=== PATIENT | female | born 1970 | race Two or more races ===

== ENCOUNTER 2017-07-31 05:53 | Emergency (ER) | payer MEDICAID ==
[~2017-07-31] VITALS: Ht 157.5 cm; Wt 63.6 kg
[~2017-07-31 05:53] MED LIST: CYCL-1 PO
[2017-07-31] MEDS ORDERED: ondansetron/PF 4mg/2ml inj IV ONE (06:25)
[2017-07-31] MEDS ORDERED: normal saline 1000ml 1,000 ML IV ONE (06:25)
[2017-07-31] MEDS ORDERED: pantoprazole 40 MG vial IV ONE (06:25)
[2017-07-31 07:25] LABS: BASOPHILS % (AUTO) 0.3 % (0-1); EOSINOPHILS # (AUTO) 0.1 X10'3 (0-0.9); HEMATOCRIT 38.3 % (35.0-45.0); LYMPHOCYTES # (AUTO) 1.6 X10'3 (1.1-4.8); LYMPHOCYTES % (AUTO) 17.2 % (21-51); MEAN CORPUSCULAR HEMOGLOBIN 31.8 PG (27.0-31.0); MEAN CORPUSCULAR VOLUME 93.6 FL (78-98); MEAN PLATELET VOLUME 9.3 FL (7.4-10.4); MONOCYTES # (AUTO) 0.6 X10'3 (0-0.9); MONOCYTES % (AUTO) 6.1 % (2-12); NEUTROPHILS # (AUTO) 7.1 X10'3 (1.8-7.7); NEUTROPHILS % (AUTO) 75.4 % (42-75); PLATELET COUNT 227 X10'3 (140-440); RED BLOOD COUNT 4.09 X10'6 (4.20-5.60); RED CELL DISTRIBUTION WIDTH 12.3 % (11.5-14.5); WHITE BLOOD COUNT 9.4 X10'3 (4.5-11.0)
[2017-07-31 07:51] LABS: ALANINE AMINOTRANSFERASE 33 U/L (12-78); ALBUMIN 3.6 G/DL (3.4-5.0); ALBUMIN/GLOBULIN RATIO 1.1 (1.1-1.5); ALKALINE PHOSPHATASE 87 IU/L (46-116); ANION GAP 7 (8-16); ASPARTATE AMINO TRANSFERASE 19 U/L (10-37); BILIRUBIN,TOTAL 0.9 MG/DL (0.1-1.0); BLOOD UREA NITROGEN 14 MG/DL (7-18); BUN/CREATININE RATIO 18.4 (6.6-38.0); CALCIUM 8.5 MG/DL (8.5-10.1); CHLORIDE 104 MMOL/L (99-107); CREATININE 0.76 MG/DL (0.40-0.90); GLUCOSE 110 MG/DL (70-104); LIPASE 90 U/L (73-393); POTASSIUM 3.6 MMOL/L (3.5-5.1); SODIUM 141 MMOL/L (135-145); eGFR 81 ML/MIN
[2017-07-31] MEDS ORDERED: ketorolac trometh. 30mg/ml inj. IV ONE (07:55)
[2017-07-31 08:25] LABS: URINE HCG NEGATIVE (NEG)
[2017-07-31 08:31] LABS: CLARITY,URINE SLIGHTLY CLOUDY (Clear); COLOR,URINE STRAW (Yellow); GLUCOSE, URINE NEGATIVE (Neg); KETONES,URINE NEGATIVE (Neg); LEUKOCYTE ESTERASE ,URINE SMALL (Neg); NITRITES, URINE NEGATIVE (Neg); OCCULT BLOOD,URINE NEGATIVE (Neg); PH,URINE 6.5 (4.8-8.0); PROTEIN,URINE NEGATIVE (Neg); UROBILINOGEN,URINE 0.2 E.U/dL (0.2-1.0)
[2017-07-31 08:32] LABS: UA COLLECTION TYPE CLN CATCH MIDSTREAM
[2017-07-31 08:36] LABS: BACTERIA,URINE 2+ /HPF (Neg); MUCUS STRANDS FEW /LPF (Neg); RENAL CELLS, URINE FEW /HPF; SQUAMOUS EPITHELIAL CELL,UR MODERATE /LPF (FEW); TRANSITIONAL EPI CELLS,URINE FEW /HPF
[2017-07-31 08:37] LABS: RBC,URINE 0-2 /HPF (0-2)
[2017-07-31 09:16] VITALS: BP 107/48
== END 2017-07-31 09:17 | disposition home or self-care (01) ==
LOC: ER 05:53
DX: R55 Syncope and collapse (principal); R19.7 Diarrhea, unspecified; F41.0 Panic disorder [episodic paroxysmal anxiety]; I10 Essential (primary) hypertension; G43.909 Migraine, unspecified, not intractable, without status migrainosus; G89.29 Other chronic pain; W19.XXXA Unspecified fall, initial encounter; Y93.89 Activity, other specified; Y92.009 Unspecified place in unspecified non-institutional (private) residence as the place of occurrence of the external cause; Y99.8 Other external cause status
CPT/HCPCS: 36415; 80053; 81001; 81025; 82948; 83690; 85025; 87077; 87088; 87186; 93005; 96361; 96374; 96375; 99285; C9113; J1885; J2405; J7030

== ENCOUNTER 2017-09-24 11:43 | Emergency (ER) | payer MEDICAID ==
[~2017-09-24] VITALS: Ht 157.5 cm; Wt 71.0 kg
[2017-09-24 11:57] VITALS: BP 144/70
[2017-09-24] MEDS ORDERED: ketorolac trometh inj. 60 MG/2 ML VIAL IM ONE (12:35)
[2017-09-24] MEDS ORDERED: NAPR-56 PO (12:36)
== END 2017-09-24 12:56 | disposition home or self-care (01) ==
LOC: ER 11:43
DX: M79.1 Myalgia (principal); M25.50 Pain in unspecified joint; G43.909 Migraine, unspecified, not intractable, without status migrainosus; I10 Essential (primary) hypertension; M19.90 Unspecified osteoarthritis, unspecified site; G89.29 Other chronic pain; Z88.8 Allergy status to other drugs, medicaments and biological substances; Z79.899 Other long term (current) drug therapy
CPT/HCPCS: 99282; J1885

== ENCOUNTER 2019-05-02 17:21 | Emergency (ER) | payer MEDICAID ==
[~2019-05-02] VITALS: Ht 157.5 cm; Wt 74.0 kg
[2019-05-02 17:55] LABS: BASOPHILS # (AUTO) 0.1 X10'3 (0-0.2); BASOPHILS % (AUTO) 0.8 % (0-1); EOSINOPHILS # (AUTO) 0.2 X10'3 (0-0.9); HEMATOCRIT 39.9 % (35.0-45.0); HEMOGLOBIN 13.7 g/dl (12.0-16.0); LYMPHOCYTES # (AUTO) 3.2 X10'3 (1.1-4.8); LYMPHOCYTES % (AUTO) 40.8 % (21-51); MEAN CORPUSCULAR HEMOGLOBIN 32.2 PG (27.0-31.0); MEAN CORPUSCULAR HGB CONC 34.4 g/dL (33.0-36.5); MEAN CORPUSCULAR VOLUME 93.7 FL (78-98); MEAN PLATELET VOLUME 9.3 FL (7.4-10.4); MONOCYTES # (AUTO) 0.7 X10'3 (0-0.9); NEUTROPHILS # (AUTO) 3.7 X10'3 (1.8-7.7); NEUTROPHILS % (AUTO) 47.4 % (42-75); PLATELET COUNT 280 X10'3 (140-440); RED BLOOD COUNT 4.26 X10'6 (4.20-5.60); RED CELL DISTRIBUTION WIDTH 12.5 % (11.5-14.5); WHITE BLOOD COUNT 7.9 X10'3 (4.5-11.0)
[2019-05-02 18:15] LABS: ALANINE AMINOTRANSFERASE 64 U/L (12-78); ALBUMIN 3.8 G/DL (3.4-5.0); ALKALINE PHOSPHATASE 97 IU/L (46-116); ANION GAP 4 (8-16); ASPARTATE AMINO TRANSFERASE 26 U/L (10-37); BILIRUBIN,TOTAL 0.5 MG/DL (0.1-1.0); BLOOD UREA NITROGEN 13 MG/DL (7-18); BUN/CREATININE RATIO 20.3 (6.6-38.0); CALCIUM 8.6 MG/DL (8.5-10.1); CHLORIDE 104 MMOL/L (99-107); CREATININE 0.64 MG/DL (0.40-0.90); GLUCOSE 120 MG/DL (70-104); POTASSIUM 3.8 MMOL/L (3.5-5.1); SODIUM 141 MMOL/L (135-145); TOTAL CARBON DIOXIDE 33.1 MMOL/L (24-32); TOTAL PROTEIN 7.6 G/DL (6.4-8.2); eGFR > 90 ML/MIN
[2019-05-02 20:48] LABS: CLARITY,URINE CLEAR (Clear); COLOR,URINE STRAW (Yellow); GLUCOSE, URINE NEGATIVE (Neg); KETONES,URINE NEGATIVE (Neg); LEUKOCYTE ESTERASE ,URINE TRACE (Neg); NITRITES, URINE NEGATIVE (Neg); OCCULT BLOOD,URINE NEGATIVE (Neg); PROTEIN,URINE NEGATIVE (Neg); UROBILINOGEN,URINE 0.2 E.U/dL (0.2-1.0)
[2019-05-02 20:57] LABS: UA COLLECTION TYPE CLN CATCH MIDSTREAM
[2019-05-02 21:02] LABS: BACTERIA,URINE FEW /HPF (Neg); MUCUS STRANDS NONE SEEN /LPF (Neg); RBC,URINE NONE SEEN /HPF (0-2); SQUAMOUS EPITHELIAL CELL,UR FEW /LPF (FEW); WBC,URINE 0-4 /HPF (0-4)
[2019-05-02] MEDS ORDERED: dexamethasone sod phosphate 10mg/ml inj IV STA (21:21)
[2019-05-02] MEDS ORDERED: ketorolac tromethamine 15mg/ml inj. IV ONE (21:25)
[2019-05-02] MEDS ORDERED: SUMAtriptan succ. 6 MG/0.5ml vial SQ ONE (21:25)
[2019-05-02] MEDS ORDERED: normal saline 1000ML IV soln IVB ONE (21:25)
[2019-05-02] MEDS ORDERED: proCHLORperazine 10 MG/2 ml inj IV ONE (21:25)
[2019-05-02 21:54] VITALS: BP 136/82
--- NOTE | 2019-05-07 10:39 | NUR ---
PT CALLED AND NOTIFIED OF POSITIVE URINE CULTURE FOR UTI AND NEED OF ABX. PT REQUESTED THAT RX BE CALLED INTO [facility] IN [place]. MACROBID 100MG BID x5 DAYS #10 WAS CALLED TO [facility] REQUEST[facility].
== END 2019-05-02 22:27 | disposition home or self-care (01) ==
LOC: ER 17:22
DX: R00.2 Palpitations (principal); R51 Headache; R07.89 Other chest pain; R06.02 Shortness of breath; G43.909 Migraine, unspecified, not intractable, without status migrainosus; I10 Essential (primary) hypertension; M19.90 Unspecified osteoarthritis, unspecified site; G89.29 Other chronic pain; Z88.6 Allergy status to analgesic agent; Z88.8 Allergy status to other drugs, medicaments and biological substances; Z79.899 Other long term (current) drug therapy
CPT/HCPCS: 36415; 70450; 71045; 80053; 81001; 83735; 83880; 84439; 84443; 84484; 85025; 87077; 87088; 87186; 93005; 96372; 96374; 96375; 99284; J0780; J1100; J1885; J7030; J3030

== ENCOUNTER 2020-05-13 05:44 | Day surgery (SDC) | payer MEDICAID ==
[2020-05-06 16:27] LABS: BASOPHILS # (AUTO) 0.1 X10'3 (0-0.2); BASOPHILS % (AUTO) 0.7 % (0-1); EOSINOPHILS # (AUTO) 0.1 X10'3 (0-0.9); EOSINOPHILS % (AUTO) 1.6 % (0-6); LYMPHOCYTES # (AUTO) 2.7 X10'3 (1.1-4.8); LYMPHOCYTES % (AUTO) 36.2 % (21-51); MEAN CORPUSCULAR HEMOGLOBIN 32.2 PG (27.0-31.0); MEAN CORPUSCULAR VOLUME 94.6 FL (78-98); MEAN PLATELET VOLUME 9.5 FL (7.4-10.4); MONOCYTES # (AUTO) 0.6 X10'3 (0-0.9); MONOCYTES % (AUTO) 7.6 % (2-12); NEUTROPHILS % (AUTO) 53.9 % (42-75); PRE OP HEMATOCRIT 40.5 % (35.0-45.0); PRE OP HEMOGLOBIN 13.8 g/dL (12.0-16.0); PRE OP PLATELET COUNT 264 X10'3 (140-440); RED BLOOD COUNT 4.28 X10'6 (4.20-5.60); RED CELL DISTRIBUTION WIDTH 12.9 % (11.5-14.5)
[2020-05-06 16:38] LABS: ALBUMIN 3.8 G/DL (3.4-5.0); ALKALINE PHOSPHATASE 86 IU/L (46-116); BLOOD UREA NITROGEN 13 MG/DL (7-18); BUN/CREATININE RATIO 17.3 (6.6-38.0); CALCIUM 8.6 MG/DL (8.5-10.1); CHLORIDE 104 MMOL/L (99-107); CREATININE 0.75 MG/DL (0.40-0.90); PRE OP ALT 51 U/L (30-65); PRE OP ANION GAP 7 (8-16); PRE OP AST 24 U/L (10-37); PRE OP BILIRUB, TOTAL 0.6 MG/DL (0.0-1.0); PRE OP GLUCOSE 119 MG/DL (70-104); PRE OP POTASSIUM 3.7 MMOL/L (3.4-5.1); PRE OP SODIUM 143 MMOL/L (135-145); TOTAL CARBON DIOXIDE 32.5 MMOL/L (24-32); TOTAL PROTEIN 7.5 G/DL (6.4-8.2); eGFR 82 ML/MIN
[2020-05-13] VITALS (10 sets, daily range): BP systolic 104–135; BP diastolic 61–79
[~2020-05-13] VITALS: Ht 157.5 cm; Wt 75.6 kg
[~2020-05-13 05:44] MED LIST changes: +ACET-1025 PO; +AMIT10TA6 PO; +CHOL500037 PO; -CYCL-1 PO; +FLUT16SP11 BOTHNARES; +GABA300C PO; +LORA-512 PO; +OMEP-50 PO; +SERT50TA PO; +SUMA100T16 PO; +VANCOMYCIN INJ 1000 MG in NORMAL SALINE 250ml IV.SOLN IV ONE; +VITAMIN D3-50 PO; +famotidine 10mg tablet PO ONE; +ringers solution, lacted 1,000 ML IV SCH
[2020-05-13] MEDS ORDERED: ceFAZolin 2gm in dextrose, iso 50 ML IV ONE (06:00)
[2020-05-13] MEDS ORDERED: triamcinolone acetonide 40mg/ml inj ONE (06:38)
[2020-05-13] MEDS ORDERED: BUPIVAcaine/PF 2.5 mg/ml (0.25%) 30ml vial ONE (06:38)
[2020-05-13] MEDS ORDERED: LIDOcaine 1% (10mg/ml) 2ml vial ONE (06:56)
[2020-05-13] MEDS ORDERED: ketorolac trometh. 30mg/ml inj. ONE (07:18)
[2020-05-13] MEDS ORDERED: sevoflurane 250ml liquid IH ONE (07:18)
[2020-05-13] MEDS ORDERED: midazolam 2 mg/2 ml injection ONE (07:22)
[2020-05-13] MEDS ORDERED: fentaNYL/PF 50MCG/1 ML 2ML syringe ONE ×2 (07:22→07:50)
[2020-05-13] MEDS ORDERED: propofol inj 20 ML IV ONE (07:31)
[2020-05-13] MEDS ORDERED: LIDOcaine 2% (20mg/ml) 5ml vial ONE (07:31)
[2020-05-13] MEDS ORDERED: meperidine/PF 25mg/ml syringe IV PRN ×3 (08:00)
[2020-05-13] MEDS ORDERED: ondansetron/PF 4mg/2ml inj IV PRN (08:00)
[2020-05-13] MEDS ORDERED: proCHLORperazine 10 MG/2 ml inj IV PRN (08:00)
[2020-05-13] MEDS ORDERED: morphine 4 MG/ML inj SYRINge IV PRN (08:00)
[2020-05-13] MEDS ORDERED: morphine 2 MG/ML inj. syringe IV PRN (08:00)
[2020-05-13] MEDS ORDERED: ringers solution, lacted 1,000 ML IV SCH (08:00)
[2020-05-13] MEDS ORDERED: acetaminophen 1,000mg/100ml IV 100 ML IV ONE (08:22)
[2020-05-13] MEDS ORDERED: ondansetron/PF 4mg/2ml inj ONE (08:22)
[2020-05-13] MEDS ORDERED: dexamethasone sod phosphate 4mg/ml inj. ONE (08:22)
--- NOTE | 2020-05-13 08:53 | NUR ---
Received from OR via [facility] , accompanied by Anesthesiologist GALINDO and report given by Anesthesiolgist. 20G RIGHT UE RUNNING LACTATED RINGERS AT 100, BILATERAL BIASES KNEE DRESSINGS CDI, PALPABLE PEDAL PULSES B, NO DRAINAGE TO DRESSINGS, VSS AT THIS TIME Addendum: 05/13/20 at 0909 by Ramon Chávez RN, RN Amended: Links added.
--- NOTE | 2020-05-13 10:23 | NUR ---
PATIENT AND FAMILY AND THEY HAVE VERBALIZED UNDERSTANDING, OPPORTUNITY TO ASK QUESTIONS GIVEN AND PATIENT COMFORTABLE WITH DC. IV TAKEN OUT WITHOUT COMPLICATION. PATIENT HAS MET ALL DC CRITERIA FOR DC HOME. I HAVE REVIEWED D/C INSTRUCTIONS WITH OUT VIA WHEELCHAIR WHERE PATIENT WAS TAKEN HOME WITH ALL BELONGINGS. FAMILY GAVE PATIENT TRANSPORT HOME. DRESSINGS TO KNEES ALL CDI. VSS. PAIN WELL CONTROLLED. ENCOURAGED TO ELEVATE ANKLE ABOVE KNEE AND KNEE ABOVE HEART TO ASSIST IN CONTROL OF SWELLING. REINFORCED INSTRUCTIONS WITH SISTER AT VEHICLE. PATIENT HAS A SCRIPT PROVIDED PREOPERATIVELY. Addendum: 05/13/20 at 1039 by Ramon Washington - [facility] Amended: Links added.
== END 2020-05-13 10:23 | disposition home or self-care (01) ==
LOC: PAS 05:44
PROVIDERS: ATTEND Orthopaedic Surgery
DX: S83.271A Complex tear of lateral meniscus, current injury, right knee, initial encounter (principal); S83.241A Other tear of medial meniscus, current injury, right knee, initial encounter; S83.272A Complex tear of lateral meniscus, current injury, left knee, initial encounter; S83.242A Other tear of medial meniscus, current injury, left knee, initial encounter; M94.262 Chondromalacia, left knee; M94.261 Chondromalacia, right knee; F41.9 Anxiety disorder, unspecified; F32.9 Major depressive disorder, single episode, unspecified; J45.909 Unspecified asthma, uncomplicated; M17.0 Bilateral primary osteoarthritis of knee; K21.9 Gastro-esophageal reflux disease without esophagitis; E66.8 Other obesity; Z68.30 Body mass index [BMI] 30.0-30.9, adult; Z20.828 Contact with and (suspected) exposure to other viral communicable diseases; Z79.899 Other long term (current) drug therapy; X58.XXXA Exposure to other specified factors, initial encounter; Y93.89 Activity, other specified; Y92.89 Other specified places as the place of occurrence of the external cause; Y99.8 Other external cause status
CPT/HCPCS: 29873; 29879; 29880; 36415; 80053; 82948; 85025; 87635; 93005; J0131; J1100; J1885; J2001; J2175; J2250; J2405; J2704; J3010; J3301; J3370; J3490; J7120; A4215; A4618; A6250; A6449; A7000